=== PATIENT | male | born 2000 | race Two or more races ===

== ENCOUNTER 2023-08-13 10:24 | Emergency (ER) | payer OTHER ==
[~2023-08-13] VITALS: Ht 188 cm; Wt 127.0 kg
[2023-08-13] MEDS ORDERED: KETOROLAC TROMETHAMINE 30 MG VIAL IM STA (11:40)
[2023-08-13 12:23] LABS: HEMATOCRIT 47.5 % (39.0-48.0); HEMOGLOBIN 16.1 g/dL (13-16.00); MEAN CELL VOLUME 81.3 fL (80.0-100.00); MEAN CORPUSCULAR HEMOGLOBIN 27.5 pg (27.00-32.0); MEAN CORPUSCULAR HGB CONC 33.9 g/dl (32.0-36.0); PLATELET COUNT 144 K/uL (150-450); RED BLOOD COUNT 5.84 M/uL (4.00-6.00); RED CELL DISTRIBUTION WIDTH 13.5 % (11.5-14.5)
[2023-08-13 13:22] LABS: ALBUMIN 4.2 gm/dL (3.4-5.0); BILIRUBIN TOTAL 2.15 mg/dL (0.3-1.2); CALCIUM 9.5 mg/dL (8.5-10.1); GFR 91.8; GLOBULINA 3.9 G/DL (2.4-3.5); POTASSIUM 4.09 mEq/L (3.5-5.1); TOTAL PROTEIN 8.1 gm/dL (6.4-8.2)
== END 2023-08-13 14:48 | disposition home or self-care (01) ==
LOC: ER 10:24
PROVIDERS: General Practice
DX: A90 Dengue fever [classical dengue] (principal); B34.9 Viral infection, unspecified; J45.909 Unspecified asthma, uncomplicated; Z20.822 Contact with and (suspected) exposure to COVID-19

== ENCOUNTER 2023-09-01 03:49 | Emergency (ER) | payer OTHER ==
[~2023-09-01] VITALS: Ht 185.4 cm; Wt 127.9 kg
[2023-09-01] MEDS ORDERED: NIFEDIPINE 30 MG TAB.SA.OSM PO STA (05:36)
[2023-09-01] MEDS ORDERED: NIFEDIPINE ER30 M1 PO (05:50)
== END 2023-09-01 06:07 ==
LOC: ER 03:49
DX: I10 Essential (primary) hypertension (principal); Z87.09 Personal history of other diseases of the respiratory system